=== PATIENT | male | born 1950 | race Hispanic/Latino ===

== ENCOUNTER → 2018-03-08 | Outpatient (CLI) | payer OTHER | END | disposition home or self-care (01) | LOC: OIH 14:04 | PROVIDERS: ATTEND Family Medicine | DX: M19.011 Primary osteoarthritis, right shoulder (principal); M19.012 Primary osteoarthritis, left shoulder | CPT/HCPCS: 73030 ==

== ENCOUNTER → 2025-04-24 | Outpatient (CLI) | payer OTHER ==
--- NOTE | 2025-04-25 00:33 | HMCSR ---
APPROVED REPORT EXAM: Two-dimensional and M-mode echocardiogram with Doppler and color Doppler. INDICATION ICD: I45.10 Unspecified Right bundle branch block Abnormal ECG 2D Dimensions RVDd4.3 cmLVEF(%)53.2 (>50%)LA ESV INDEX (BP)29.73 mL/m2 IVSd0.7 (0.7-1.1cm)FS(%)27 % LVDd4.9 (3.8-5.6cm)LA (2D)4.5 (1.6-4.0cm) PWd0.8 (0.7-1.1cm)Ao Root(2D)2.5 (2.0-3.7cm) LVDs3.6 (2.5-4.0cm)LVOT diam2.2 (1.8-2.4cm) IVC diam1.7 cm M-Mode Dimensions EPSS0.6 cm LA (MM)4.2 (1.6-4.0cm) Ao Root(MM)2.5 (2.0-3.7cm) Aortic Valve AoV Vmax1.6 m/Lilliam Peak GR10.1 mmHgLVOT Vmax0.9 m/s AoV VTI0.4 mAo Mean GR5.3 mmHgLVOT VTI0.23 m MARITA (VMAX)2.22 cm2AVA (VTI) 2.4 cm2 Mitral Valve MV E Vmax85.5 cm/sDECEL Qkkd402 ms MV A Vmax97.8 cm/sP 1/2 T98 ms E/A ratio0.9MVA (PHT)2.2 cm2 TDI E/E' Pvrizi13.5E/E' Lateral9.6 Medial E' Peak V6.86 cm/sLateral E' Peak V8.89 cm/s Pulmonary Valve PV Vmax2.2 m/sPV VTI0.69 mPV Mean GR13.1 mmHg PV Peak GR20.2 mmHg Left Ventricle The left ventricle is normal size. There is normal LV segmental wall motion. Mild concentric left arjun tricular hypertrophy. Left ventricular systolic function is normal, estimated LVEF is 55 to 60%. Stag e I diastolic dysfunction. Right Ventricle The right ventricle is mildly dilated. The right ventricular systolic function is normal. Atria The left atrium size is normal. The right atrium size is normal. Aortic Valve The aortic valve is normal in structure. The leaflets are mildly thickened and calcified. Trace aorti c regurgitation. There is no aortic valvular stenosis. Mitral Valve The mitral valve is normal in structure. The leaflets are mildly thickened. Trace mitral regurgitatio n. There is no mitral valve stenosis. Tricuspid Valve The tricuspid valve is normal in structure. Trace tricuspid regurgitation. RVSP is normal. Pulmonic Valve Pulmonic valve is not well visualized. Great Vessels The aortic root is normal in size. The IVC is normal in size and collapses >50% with inspiration. Pericardium There is no pericardial effusion. Conclusion The cardiac chambers are normal in size. Mild concentric left ventricular hypertrophy. There is normal LV segmental wall motion. Left ventricular systolic function is normal, estimated LVEF is 55 to 60%. Stage I diastolic dysfunction. Trace aortic regurgitation. Trace mitral regurgitation. Trace tricuspid regurgitation. PASP is normal. There is no pericardial effusion.
== END | disposition home or self-care (01) ==
LOC: RAH 12:33
PROVIDERS: ATTEND Family Medicine
DX: I08.0 Rheumatic disorders of both mitral and aortic valves (principal); I45.10 Unspecified right bundle-branch block; R94.31 Abnormal electrocardiogram [ECG] [EKG]
CPT/HCPCS: 93306

== ENCOUNTER → 2025-08-20 | Outpatient (CLI) | payer OTHER ==
[2025-08-20 21:34] VITALS: PULSE 63; RESP 12
[2025-08-20 22:00] VITALS: PULSE 58; RESP 8
[2025-08-20 22:34] VITALS: PULSE 56; RESP 18
[2025-08-20 23:02] VITALS: PULSE 55; RESP 14
[2025-08-20 23:33] VITALS: PULSE 55; RESP 12
[2025-08-21] VITALS (12 sets, daily range): PULSE 54–66; RESP 12–18
== END | disposition home or self-care (01) ==
LOC: SLP 20:27
PROVIDERS: ATTEND Family Medicine
DX: G47.33 Obstructive sleep apnea (adult) (pediatric) (principal); R06.83 Snoring; I45.10 Unspecified right bundle-branch block; E66.01 Morbid (severe) obesity due to excess calories; R05.9 Cough, unspecified; Z68.42 Body mass index [BMI] 45.0-49.9, adult
CPT/HCPCS: 95810

== ENCOUNTER → 2025-08-28 | Outpatient (CLI) | payer OTHER ==
[2025-08-28 21:51] VITALS: PULSE 78; RESP 15
[2025-08-28 22:41] VITALS: PULSE 59; RESP 5
[2025-08-28 23:16] VITALS: PULSE 56; RESP 16
[2025-08-28 23:31] VITALS: PULSE 58; RESP 17
[2025-08-29] VITALS (13 sets, daily range): PULSE 52–89; RESP 7–19
== END | disposition home or self-care (01) ==
LOC: SLP 20:27
PROVIDERS: ATTEND Family Medicine
DX: G47.33 Obstructive sleep apnea (adult) (pediatric) (principal); R06.83 Snoring; I45.10 Unspecified right bundle-branch block; E66.01 Morbid (severe) obesity due to excess calories; R05.9 Cough, unspecified
CPT/HCPCS: 95811